=== PATIENT | male | born 1995 | race Caucasian/White ===

== ENCOUNTER 2019-04-13 23:03 | Emergency (ER) | payer SELFPAY ==
[~2019-04-13] VITALS: Ht 177.8 cm; Wt 70.5 kg
[2019-04-13 23:15] VITALS: BP 123/74; PULSE 88; TEMP 98.2
== END 2019-04-14 00:07 | disposition home or self-care (01) ==
LOC: COL.ER 23:03
DX: F10.129 Alcohol abuse with intoxication, unspecified (principal); R40.2410 Glasgow coma scale score 13-15, unspecified time; Y90.8 Blood alcohol level of 240 mg/100 ml or more; V53.5XXA Driver of pick-up truck or van injured in collision with car, pick-up truck or van in traffic accident, initial encounter

== ENCOUNTER → 2019-04-13 | Outpatient (REF) | LOC: COL.ER 23:13 | DX: Z02.83 Encounter for blood-alcohol and blood-drug test (principal) ==

== ENCOUNTER 2019-05-20 15:00 | Emergency (ER) | payer OTHER ==
[~2019-05-20] VITALS: Ht 177.8 cm; Wt 81.8 kg
[2019-05-20 16:14] LABS: BASO # 0.1 (0.0-0.2); BASO % 0.7 % (0.0-2.0); EOS # 0.1 (0.0-0.7); EOS % 0.6 % (0-4.0); GRAN # 7.4 (1.4-6.5); GRAN % 59.9 % (42.2-75.2); HEMATOCRIT 45.4 % (42.0-52.0); HEMOGLOBIN 15.7 g/dl (13.5-18.0); LYMPH # 4.4 (1.2-3.4); LYMPH % 35.5 % (20.0-51.0); MEAN CELL VOLUME 95 fl (80.0-100.0); MEAN CORPUSCULAR HEMOGLOBIN 33 pg (27.0-31.0); MEAN CORPUSCULAR HGB CONC 35 g/dl (33.0-37.0); MEAN PLATELET VOLUME 9.6 fl (7.4-10.4); MONO # 0.4 (0.1-0.6); MONO % 3.1 % (1.7-9.3); PLATELET COUNT 299 K/mm3 (130-400); RED BLOOD COUNT 4.76 M/mm3 (4.20-5.60); REDCELL DISTRIBUTION WIDTH-CV 11.3 % (11.5-14.5)
[2019-05-20 16:18] LABS: ALANINE AMINOTRANSFERASE 10 U/L (21-72); ALBUMIN 5.1 gm/dL (3.5-5.0); ALKALINE PHOSPHATASE 117 U/L (50-136); ANION GAP 20 mmol/L (7-16); AST,SGOT 29 U/L (15-37); BILIRUBIN,TOTAL 0.5 mg/dL (0.0-1.0); BLOOD UREA NITROGEN 11 mg/dL (9-20); CARBON DIOXIDE 21 mmol/L (22-30); CHLORIDE 110 mmol/L (98-107); CREATININE, serum 0.84 (0.66-1.25); GLUCOSE 74 mg/dL (74-106); POTASSIUM 3.7 mmol/L (3.4-5.0); SODIUM 151 mmol/L (137-145); TOTAL PROTEIN 8.9 gm/dL (6.4-8.2)
[2019-05-20 16:19] LABS: ACETAMINOPHEN < 10 ug/mL (10-30); SALICYLATE < 1.0 mg/dL
[2019-05-20 16:25] LABS: ALCOHOL(ethanol),MEDICAL 485 mg/dL
[2019-05-20] MEDS ORDERED: CARAFATE 1GM1 G PO (18:01)
[2019-05-20] MEDS ORDERED: PROTONIX 40MG T40 MG PO (18:02)
[2019-05-20 20:31] LABS: COLLECTION METHOD CLEAN CATCH
[2019-05-20 20:39] LABS: MUCOUS Present /lpf; PH 5 (5-8); SQUAMOUS EPITHELIAL None Seen /hpf; URINE APPEARANCE Clear; URINE BACTERIA None Seen /hpf; URINE BILIRUBIN Negative (NEGATIVE); URINE BLOOD Negative (NEGATIVE); URINE COLOR Straw; URINE GLUCOSE Negative (NEGATIVE); URINE KETONE 1+ (NEGATIVE); URINE LEUKOCYTE ESTERASE Negative (NEGATIVE); URINE NITRATE Negative (NEGATIVE); URINE PROTEIN(semi-quant) Negative (NEGATIVE); URINE RBC 0-2 /hpf; URINE UROBILINOGEN Negative (NEGATIVE)
[2019-05-20 20:49] LABS: TRICYCLIC ANTIDEPRESS URINE NEGATIVE
[2019-05-21 07:58] VITALS: BP 131/72; PULSE 96; TEMP 98
== END 2019-05-21 09:34 | disposition home or self-care (01) ==
LOC: COL.ER 15:00
PROVIDERS: Emergency Medicine
DX: F10.129 Alcohol abuse with intoxication, unspecified (principal); R45.851 Suicidal ideations; Y90.8 Blood alcohol level of 240 mg/100 ml or more
CPT/HCPCS: J1200; J1630; J7030

== ENCOUNTER 2019-06-19 08:30 | Day surgery (SDC) | payer OTHER ==
[~2019-06-19] VITALS: Ht 177.8 cm; Wt 68.9 kg
[~2019-06-19 08:30] MED LIST: CARAFATE 1GM1 G PO; PROTONIX 40MG T40 MG PO
[2019-06-19 09:04] VITALS: BP 133/86; PULSE 77; TEMP 98.2
[2019-06-19 10:00] VITALS: BP 135/86; PULSE 71; TEMP 98.6
--- NOTE | 2019-06-19 10:00 | NUR ---
Pt to [facility]. Pt ambulates to recliner with stand by assistance. Pt denies pain or nausea. VSS. Muffin and juice given per pt request. No visitors here with pt at this time. Call light within reach.
[2019-06-19 10:15] VITALS: BP 122/78; PULSE 63
--- NOTE | 2019-06-19 10:15 | NUR ---
Pt continues to rest. Denies needs. Tolerating food and fluids without difficulties. Call light within reach.
[2019-06-19 10:30] VITALS: BP 125/75; PULSE 74
--- NOTE | 2019-06-19 10:30 | NUR ---
Discharge instructions reviewed. Pt voices understanding. IV site discontinued with all parts intact. Pt up to dress. Call light within reach.
[2019-06-19 10:43] VITALS: BP 118/67; PULSE 62
--- NOTE | 2019-06-19 10:50 | NUR ---
Pt escorted to private car via wheel chair. Pt accompanied home by his friend.
== END 2019-06-19 10:50 | disposition home or self-care (01) ==
LOC: SDCO 08:30
DX: K62.89 Other specified diseases of anus and rectum (principal); R19.7 Diarrhea, unspecified; R11.2 Nausea with vomiting, unspecified; R10.9 Unspecified abdominal pain; Z79.899 Other long term (current) drug therapy
CPT/HCPCS: J2250; J3010; J7030

== ENCOUNTER 2019-10-01 11:39 | Emergency (ER) | payer OTHER ==
[~2019-10-01] VITALS: Ht 177.8 cm; Wt 68.2 kg
[2019-10-01 11:55] VITALS: BP 138/85
[2019-10-01] MEDS ORDERED: FLEXERIL 1010 MG/TAB PO (14:34)
[2019-10-01 14:56] VITALS: PULSE 73; TEMP 98.2
== END 2019-10-01 14:57 | disposition home or self-care (01) ==
LOC: COL.ER 11:39
DX: S16.1XXA Strain of muscle, fascia and tendon at neck level, initial encounter (principal); F17.210 Nicotine dependence, cigarettes, uncomplicated; W18.39XA Other fall on same level, initial encounter; W22.8XXA Striking against or struck by other objects, initial encounter

== ENCOUNTER 2020-01-28 22:53 | Emergency (ER) | payer OTHER ==
[~2020-01-28] VITALS: Ht 177.8 cm; Wt 68.2 kg
[2020-01-28 22:53] VITALS: TEMP 98
[~2020-01-28 22:53] MED LIST changes: +FLEXERIL 1010 MG/TAB PO
[2020-01-28] MEDS ORDERED: CARAFATE 1GM1 G PO (22:57)
[2020-01-28 23:35] LABS: BASO % 0.3 % (0.0-2.0); EOS % 0.1 % (0-4.0); GRAN # 6.7 (1.4-6.5); GRAN % 76.7 % (42.2-75.2); HEMATOCRIT 44.9 % (42.0-52.0); HEMOGLOBIN 15.8 g/dl (13.5-18.0); LYMPH # 1.2 (1.2-3.4); MEAN CELL VOLUME 97 fl (80.0-100.0); MEAN CORPUSCULAR HEMOGLOBIN 34 pg (27.0-31.0); MEAN CORPUSCULAR HGB CONC 35 g/dl (33.0-37.0); MEAN PLATELET VOLUME 9.7 fl (7.4-10.4); MONO # 0.8 (0.1-0.6); MONO % 8.6 % (1.7-9.3); PLATELET COUNT 200 K/mm3 (130-400); RED BLOOD COUNT 4.65 M/mm3 (4.20-5.60); REDCELL DISTRIBUTION WIDTH-CV 11.7 % (11.5-14.5)
[2020-01-28 23:41] LABS: ALBUMIN 5.4 gm/dL (3.5-5.0); ALKALINE PHOSPHATASE 127 U/L (50-136); ANION GAP 14 mmol/L (7-16); AST,SGOT 71 U/L (15-37); BILIRUBIN,TOTAL 2.1 mg/dL (0.0-1.0); BLOOD UREA NITROGEN 7 mg/dL (9-20); CALCIUM 10.4 mg/dL (8.4-10.2); CARBON DIOXIDE 27 mmol/L (22-30); CHLORIDE 90 mmol/L (98-107); CREATININE, serum 0.79 (0.66-1.25); GLUCOSE 151 mg/dL (74-106); POTASSIUM 4.2 mmol/L (3.4-5.0); SODIUM 131 mmol/L (137-145); TOTAL PROTEIN 9.3 gm/dL (6.4-8.2)
[2020-01-28 23:47] LABS: ALANINE AMINOTRANSFERASE 50 U/L (4-49)
[2020-01-28 23:49] LABS: ALCOHOL(ethanol),MEDICAL < 10 mg/dL
[2020-01-28 23:57] LABS: PROLACTIN 27.4 ng/mL (3.7-17.9)
[2020-01-29 01:34] LABS: COLLECTION METHOD CLEAN CATCH
[2020-01-29 01:42] LABS: MUCOUS Present /lpf; PH 6 (5-8); SQUAMOUS EPITHELIAL 0-2 /hpf; URINE APPEARANCE Hazy; URINE BACTERIA None Seen /hpf; URINE BILIRUBIN Negative (NEGATIVE); URINE BLOOD 2+ (NEGATIVE); URINE COLOR Yellow; URINE GLUCOSE Negative (NEGATIVE); URINE KETONE Negative (NEGATIVE); URINE LEUKOCYTE ESTERASE Negative (NEGATIVE); URINE NITRATE Negative (NEGATIVE); URINE PROTEIN(semi-quant) 2+ (NEGATIVE); URINE RBC 0-2 /hpf
[2020-01-29 01:56] LABS: TRICYCLIC ANTIDEPRESS URINE NEGATIVE
[2020-01-29] MEDS ORDERED: KEPPRA 500MG500 MG PO (02:01)
[2020-01-29 02:20] VITALS: BP 113/76; PULSE 75
== END 2020-01-29 02:25 | disposition home or self-care (01) ==
LOC: COL.ER 22:53
PROVIDERS: Emergency Medicine
DX: R56.9 Unspecified convulsions (principal); F12.129 Cannabis abuse with intoxication, unspecified; F17.210 Nicotine dependence, cigarettes, uncomplicated
CPT/HCPCS: J1953; J2405; J7030